=== PATIENT | male | born 1975 | race Caucasian/White ===

== ENCOUNTER → 2017-04-28 | Outpatient (CLI) | payer BC ==
--- NOTE | 2017-04-28 14:34 | VAS ---
HISTORY: Right lower extremity edema Study: Right lower extremity venous Doppler Comparison: None TECHNIQUE: Multiple walter scale and color flow Doppler images of the deep venous system were obtaine d of the right lower extremity. FINDINGS: The deep venous system of the right lower extremity was evaluated from the level of the common femor al vein through the popliteal vein. Normal color flow and augmentation can be observed. In additio n, normal compression is seen throughout the deep venous system. IMPRESSION: 1. Negative for DVT. Reported By:
== END ==
LOC: RAD 14:05
PROVIDERS: ATTEND Internal Medicine
DX: R60.0 Localized edema (principal); M79.661 Pain in right lower leg
CPT/HCPCS: 93971

== ENCOUNTER → 2017-05-19 | Outpatient (CLI) | payer BC ==
--- NOTE | 2017-05-19 16:52 | MRI ---
Indication: Septic arthritis and right foot pain. Exam: MRI right foot without contrast. Technique: Routine multiplanar multi sequence imaging was performed through the right foot without c ontrast . Findings: The ankle mortise is intact . There is a small effusion in the tibiotalar joint. The talus and calcaneus are unremarkable . The tarsal and metatarsal bones are intact and normal signal inten sity throughout . No fracture or dislocation is seen . There is abnormal signal seen around the 1st, 2nd, and 3rd digits distally which is only seen on the axial data sets which is probably related to inadequate fat suppression and susceptibility artifact in the area . There is no obvious abnormal s ignal seen in these digits on the sagittal data sets set. There are small effusions along the MTP sanjuana ints which is most prominent along the 1st toe with no erosions seen. The surrounding tendons and li gaments are intact. The surrounding soft tissues are as unremarkable. Impression: Slightly limited evaluation of the distal 1st , 2nd , and 3rd toes which is probably due to inadequa te fat suppression and possible susceptibility artifact in the area on several of the sequences with no abnormal signal on the other sequences which is suggestive of artifact. If there is clinical con cern for these toes distally , suggest correlating with a 3 phase bone scan. Small effusions in the MTP joints which is most prominent along the 1st toe with no erosion seen and no obvious acute fracture or dislocation. Tiny effusion in the tibiotalar joint . The tendons and ligaments are intact and in good position . Reported By:
== END | disposition home or self-care (01) | DRG 550 ==
LOC: RAD 15:35
PROVIDERS: ATTEND Specialist
DX: M00.9 Pyogenic arthritis, unspecified (principal); M25.474 Effusion, right foot
CPT/HCPCS: 73718

== ENCOUNTER 2021-04-30 08:52 | Inpatient (IN) ==
[2021-04-30 09:04] VITALS: BMI 26.6
[2021-04-30] MEDS ORDERED: TYLENOL 325 MG TAB PO ONE ×2 (09:04→09:06)
[2021-04-30] MEDS ORDERED: NS 100 ML IV 100 ML ONE ×2 (09:04→11:38)
[2021-04-30] MEDS ORDERED: BENADRYL INJ 50 MG VIAL ONE (09:04)
[2021-04-30] MEDS ORDERED: SOLU-Medrol 125 MG VIAL ONE (09:04)
[2021-04-30] MEDS ORDERED: BENADRYL INJ 50 MG VIAL IV ONE (09:06)
[2021-04-30] MEDS ORDERED: SOLU-Medrol 125 MG VIAL IVP ONE (09:06)
[2021-04-30] MEDS ORDERED: REMDESIVIR 100 MG in NS 250 ML IV 250 ML IV ONE (09:07)
[2021-04-30 09:51] LABS: BASOPHILS % (AUTO) 0.4 % (0.2-1.0); HEMATOCRIT 41.6 % (42.0-54.0); HEMOGLOBIN 14.2 g/dL (13.5-18.0); LYMPHOCYTES # (AUTO) 0.7 X10^3/uL (1.3-2.9); LYMPHOCYTES % (AUTO) 13.8 % (21.0-51.0); MEAN CORPUSCULAR HEMOGLOBIN 30.4 pg (27.0-34.0); MEAN CORPUSCULAR HGB CONC 34.2 g/dL (33.0-35.0); MEAN CORPUSCULAR VOLUME 88.8 fL (80.0-100.0); MONOCYTES # (AUTO) 0.5 x10^3/uL (0.3-0.8); MONOCYTES % (AUTO) 8.6 % (0.0-13.0); NEUTROPHILS # (AUTO) 4.2 x10^3/uL (2.2-4.8); NEUTROPHILS % (AUTO) 77.2 % (42.0-75.0); PLATELET COUNT 146 X10^3/uL (150.0-450.0); RED BLOOD COUNT 4.69 X10^6/uL (4.7-6.0); RED CELL DISTRIBUTION WIDTH 13.1 % (11.6-16.5); WHITE BLOOD COUNT 5.4 X10^3/uL (3.6-10.0)
--- NOTE | 2021-04-30 09:58 | RAD ---
HISTORYPre COVID-19 infusionSTUDYChest PA and [id number] is within normal limits in size. The harman are normal. Increasing bilateral ground-glass infiltrates are identified now involving the periphery of the right upper lobe and a significant portion of the right lung base and to a much lesser extent peripherally in the left upper lobe. No pleural effusions are identified. Bony thorax is unremarkable.IMPRESSIONIncreasing bilateral ground-glass infiltrates compatible with but not diagnostic of COVID 19 lung involvement.Electronically signed by: LINDA LYNN (Apr 30, 2021 09:56:02)
[2021-04-30 10:05] LABS: ALANINE AMINOTRANSFERASE 65 Units/L (12-78); ALKALINE PHOSPHATASE 92 Units/L (46-116); ASPARTATE AMINO TRANSFERASE 70 Units/L (15-37); BLOOD UREA NITROGEN 12 mg/dL (7-18); CALCIUM 8.6 mg/dL (8.5-10.1); CARBON DIOXIDE 31.6 mmol/L (21-32); CHLORIDE 102 mmol/L (98-107); COR CA(FOR HYPOALB) 9.4 mg/dL (8.5-10.1); CREATININE 1.09 mg/dL (0.70-1.30); SODIUM 138 mmol/L (136-145); TOTAL PROTEIN 7.3 g/dL (6.4-8.2); eGFR NON BLACK RACES > 60 (>60)
[2021-04-30 11:06] LABS: ABG ALLEN TEST POS; ABG BASE EXCESS 3.7 mmol/L (-2.0-2.0); ABG HCO3 28.5 mmol/L (22-26)
[2021-04-30] MEDS ORDERED: HumuLIN R SUBCUT PRN (11:27)
[2021-04-30] MEDS ORDERED: PHARMACY CONSULT - IVERMECTIN XX SCH (12:00)
[2021-04-30] MEDS: NS 1/2 1000 ML IV 1,000 ML IV SCH (12:15)
--- NOTE | 2021-04-30 12:25 | CT ---
CTA CHESTCLINICAL INDICATION: COVID PNEUMONIA, ELEVATED D-DIMERPROCEDURE: Non gated axial images of the chest were obtained with intravenous contrast according to pulmonary embolism protocol. MIPS were reconstructed Dose reduction techniques including Automated Exposure Control (AEC) and adjustment of mA and kV were utlized.COMPARISON:NoneFINDINGS:No evidence of a pulmonary embolism to the level of the segmental pulmonary arteries.The heart is normal in size . No pericardial effusion . Patchy bilateral ground-glass opacities are present. No suspicious mediastinal or axillary lymph nodes . No focal consolidations, pleural effusions or pneumothorax .Airways are patent . No suspicious pulmonary nodules or masses .Limited images of the upper abdomen are unremarkable.No aggressive osseous lesions.IMPRESSION:1. No evidence of pulmonary embolism.2. Patchy bilateral ground-glass opacities consistent with acute, atypical infection including viral etiologies.Electronically signed by: RAULITO KEYS (Apr 30, 2021 12:23:30)
[2021-04-30] MEDS ORDERED: IVERMECTIN PO ONE (13:00)
[2021-04-30 13:05] LABS: CKMB % 0.7 % (<4); CREATINE KINASE 143 Units/L (39-308); CREATINE KINASE MB < 1.0 ng/mL (0-4.0); TROPONIN I < 0.02 ng/mL (0-1.5)
[2021-04-30] MEDS: MUCOMYST 20% 200 MG/ML NEB SCH ×4 (14:05→20:33)
[2021-04-30] MEDS: ACCUNEB 1.25 MG NEBULE NEB SCH ×4 (14:05→20:32)
[2021-04-30] MEDS: ROBITUSSIN DM PO SCH ×3 (14:48→20:51)
[2021-04-30] MEDS: LOVENOX INJ 30 MG SYR SC SCH ×2 (14:48→20:51)
[2021-04-30] MEDS: SOLU-Medrol 125 MG VIAL IVP SCH ×2 (14:48→21:04)
[2021-04-30] MEDS: TESSALON PERLES PO SCH ×2 (14:48→21:04)
[2021-04-30] MEDS: ASCORBIC ACID INJ MULTI-DOSE VIAL 1,500 MG in NS 50 ML IV 50 ML IV SCH ×2 (14:59→20:50)
[2021-04-30] MEDS ORDERED: PULMICORT NEB TX 0.5 MG NEB ONE (19:50)
[2021-04-30] MEDS: PULMICORT NEB TX 0.5 MG NEB SCH (20:33)
[2021-04-30] MEDS: SNACK - Diabetic Appropriate PO SCH (20:49)
[2021-04-30] MEDS: LIPITOR TAB 80 MG PO SCH (20:50)
[2021-04-30] MEDS: MELATONIN PO SCH (20:51)
[2021-04-30] MEDS: SINGULAIR TAB 10 MG PO SCH (20:52)
[2021-04-30] MEDS: TUSSIONEX PENNKINETIC SUSP PO PRN (22:43)
[2021-05-01] MEDS: ASCORBIC ACID INJ MULTI-DOSE VIAL 1,500 MG in NS 50 ML IV 50 ML IV SCH ×4 (02:41→20:22)
[2021-05-01 04:38] LABS: ABG BASE EXCESS 3.3 mmol/L (-2.0-2.0); ABG HCO3 29.1 mmol/L (22-26)
[2021-05-01 04:39] LABS: ABG ALLEN TEST POS
[2021-05-01] MEDS: NS 1/2 1000 ML IV 1,000 ML IV SCH ×4 (04:40→21:56)
[2021-05-01 05:01] LABS: BASOPHILS % (AUTO) 0.2 % (0.2-1.0); HEMATOCRIT 37.8 % (42.0-54.0); HEMOGLOBIN 12.9 g/dL (13.5-18.0); LYMPHOCYTES # (AUTO) 0.6 X10^3/uL (1.3-2.9); LYMPHOCYTES % (AUTO) 11.6 % (21.0-51.0); MEAN CORPUSCULAR HEMOGLOBIN 30.1 pg (27.0-34.0); MEAN CORPUSCULAR HGB CONC 34.1 g/dL (33.0-35.0); MEAN CORPUSCULAR VOLUME 88.3 fL (80.0-100.0); MEAN PLATELET VOLUME 8.3 fL (7.4-11.0); MONOCYTES # (AUTO) 0.5 x10^3/uL (0.3-0.8); MONOCYTES % (AUTO) 10.6 % (0.0-13.0); NEUTROPHILS # (AUTO) 3.9 x10^3/uL (2.2-4.8); NEUTROPHILS % (AUTO) 77.6 % (42.0-75.0); PLATELET COUNT 170 X10^3/uL (150.0-450.0); RED BLOOD COUNT 4.29 X10^6/uL (4.7-6.0); RED CELL DISTRIBUTION WIDTH 12.9 % (11.6-16.5); WHITE BLOOD COUNT 5.1 X10^3/uL (3.6-10.0)
[2021-05-01] MEDS ORDERED: NS 1/2 1000 ML IV 1,000 ML IV ONE ×2 (05:05→20:19)
[2021-05-01 05:06] LABS: BLOOD UREA NITROGEN 10 mg/dL (7-18); CALCIUM 8.2 mg/dL (8.5-10.1); CHLORIDE 102 mmol/L (98-107); COR NA(FOR HYPERGLY) 140 mmol/L (136-145); CREATININE 0.86 mg/dL (0.70-1.30); SODIUM 139 mmol/L (136-145); eGFR NON BLACK RACES > 60 (>60)
[2021-05-01] MEDS: SOLU-Medrol 125 MG VIAL IVP SCH ×3 (05:08→21:56)
[2021-05-01] MEDS: TESSALON PERLES PO SCH ×3 (05:08→21:56)
--- NOTE | 2021-05-01 06:33 | RAD ---
HISTORYShortness of breathSTUDYChest AP [id number]/2021 plain film and CTA chestFINDINGSThe heart is mildly enlarged. No congestive heart failure is noted. Bilateral interstitial and peripheral ground-glass infiltrates are again identified unchanged on the right and slightly worse on the left when compared with the prior examination. No pleural effusions are identified. Bony thorax is unremarkable.IMPRESSIONMinimal cardiomegaly without congestive heart failureBilateral interstitial and peripheral ground-glass infiltrates unchanged on the right and slightly increased on the left when compared with the prior examinationElectronically signed by: LINDA LYNN (May 01, 2021 06:31:47)
[2021-05-01] MEDS: ACCUNEB 1.25 MG NEBULE NEB SCH ×4 (08:43→20:22)
[2021-05-01] MEDS: MUCOMYST 20% 200 MG/ML NEB SCH ×4 (08:43→20:22)
[2021-05-01] MEDS: PULMICORT NEB TX 0.5 MG NEB SCH ×2 (08:43→20:22)
[2021-05-01] MEDS: ROBITUSSIN DM PO SCH ×4 (09:00→20:23)
[2021-05-01] MEDS: LEVAQUIN PREMIX IV 500 MG 500 MG/100 ML BAG IV SCH (09:00)
[2021-05-01] MEDS: ZyrTEC TAB 10 MG PO SCH (09:00)
[2021-05-01] MEDS: PROTONIX INJ 40 MG VIAL IVP SCH (09:00)
[2021-05-01] MEDS: PEPCID 20 MG IV PREMIX* 20 MG/50 ML BAG IV SCH (09:00)
[2021-05-01] MEDS: ZINC SULFATE PO SCH (09:00)
[2021-05-01] MEDS ORDERED: REMDESIVIR 100 MG in NS 250 ML IV 250 ML IV SCH (09:00)
[2021-05-01] MEDS: DIFLUCAN PO SCH (09:00)
[2021-05-01] MEDS: VITAMIN D3 125 mcg (5,000 UNITS) PO SCH (09:00)
--- NOTE | 2021-05-01 10:49 | DR.H&P ---
H&P - History & Physical for Day of: H&P Date: 04/30/21 - Chief Complaint Chief Complaint: SHORTNESS OF BREATH, COUGH, BODY ACHES, AND WEAKNESS - History of Present Illness History of Present Illness: IS A 45 YEAR OLD PATIENT OF [employer]. HAS A PMH OF SEIZURES DUE TO ENCEPHALITIS. HE WAS DIAGNOSED WITH COVID-19 ON 04/25/2021. HE HAD BEEN RECEVING OUTPATIENT REMDESIVIR INFUSIONS SINCE 04/29. HE PRESENTED FOR OUTPATIENT INFUSION TODAY WITH COMPLAINTS OF PERSISTENT SHORTNESS OF BREATH, COUGH, BODY ACHES, AND WEAKNESS. HIS OXYGEN SATURATIONS HAVE DROPPED INTO THE 80s ON ROOM AIR. HE HAS BEEN USING BUDESONIDE NEB TREATMENTS AND TAKING ELIQUIS 5MG PO BID. HE HAS ALSO TAKEN IVERMECTIN X 2 DOSES. HIS LABS WERE OBTAINED ON ARRIVAL. ABNORMAL LAB VALUES INCLUDE THE FOLLOWING: RBC 4.69, HCT 41.6, PLT COUNT 146, D-DIMER 1.76, GLUCOSE 106, FERRITIN 2505, AST 70, CRP 219.60, ALBUMIN 3.0. ABG WAS OBTAINED AND REVEALED: PH 7.430, PC02 43, P02 54, HC03 28.5, 02 SAT 89, BASE EXCESS 3.7, A-A GRADIENT 42, FI02 21.0. BLOOD CULTURES WERE SET UP. A CHEST XRAY WAS OBTAINED AND REVEALED: Increasing bilateral ground-glass infiltrates compatible with but not diagnostic of COVID 19 lung involvement. CHEST CTA OBTAINED AND REVEALED: 1. No evidence of pulmonary embolism. 2. Patchy bilateral ground-glass opacities consistent with acute, atypical infection including viral etiologies. EKG REVEALED: SINUS RHYTHM WITH HR 79. PATIENT WAS ADMITTED TO THE HOSPITAL FOR FURTHER EVALUATION AND TREATMENT OF PNEUMONIA DUE TO COVID-19, FAILED OUTPATIENT TREATMENT, HYPOXIA. HE WAS STARTED ON SUPPLEMENTAL OXYGEN, 1/2NS AT 75 ML/HR, REMDESIVIR 100MG IV DAILY, LEVAQUIN 500MG IV DAILY, ALBUTEROL NEBS QID, PULMICORT NEBS BID, MUCOMYST IN NEBS QID, ASCORBIC ACID 1500MG IV Q6H, LIPITOR 80MG PO HS, TESSALON PERLES 200MG PO TID, ZYRTEC 10MG PO DAILY, TUSSIONEX 5ML PO Q12H PRN, LOVENOX 30MG SC BID, PEPCID 20MG IV DAILY, DIFLUCAN 100MG PO DAILY, ROBITUSSIN DM 10ML PO QID, HUMULIN R SLIDING SCALE, OTBS ACHS, MELATONIN 10MG PO HS, SOLU-MEDROL 80MG IV Q8 H, SINGULAIR 10MG PO HS, PROTONIX 40MG IV DAILY, AND ZINC SULFATE 220MG PO DAILY. OTHERWISE, WE WILL FOLLOW UP WITH AM LABS AND CONTINUE TO MONITOR. TIME SPENT ON CLINICAL ASSESSMENT, REVIEWING LABS AND IMAGING, DECISION MAKING, AND DOCUMENTATION GREATER THAN 75 MINUTES. - Past Medical History Past Medical History: Seizures Additional Medical History: ENCEPHALITIS - Family History Family Medical History: Hypertension - Social History Does patient currently use any type of tobacco product: No Have you used tobacco products in the last 12 months: No Type of Tobacco Use: None Does any household member use tobacco: No Alcohol Use: None Drug Use: None - Medications Home Medications: No Known Drug Allergies Allergy (Verified 04/28/21 15:59) CONTINUE taking the following medications carisoprodol [Soma] 350 mg PO TID PRN 04/30/21 [History] levetiracetam [Keppra] 1,000 mg PO BID 04/30/21 [History] phenytoin [Dilantin Infatabs] 50 mg PO QHS 04/30/21 [History] phenytoin sodium extended 300 mg PO QAM 04/30/21 [History] - Review of Systems Constitutional: See HPI, Fever, Weakness Eyes: No Symptoms Reported ENT: No Symptoms Reported Respiratory: See HPI, Cough, Shortness of Breath Cardiovascular: No Symptoms Reported Gastrointestinal: No Symptoms Reported Genitourinary: No Symptoms Reported Musculoskeletal: No Symptoms Reported Skin: No Symptoms Reported Neurological: Weakness - Physical Exam Vital Signs: Temperature 96.9 F Pulse Rate [Right Brachial] 86 Pulse Rate 65 Respiratory Rate 18 Blood Pressure [Right Arm] 115/67 Blood Pressure 111/70 O2 Sat by Pulse Oximetry 96 Oriented: Normal Eyes: Normal Ear: Normal Nose: Normal Throat: Normal Respiratory: Diminished Throughout, Rales Throughout Cardiovascular: Normal : Normal Auscultation: Bowel Sounds: Normal Palpation: Normal Tenderness: Normal Skin: Normal Musculoskeletal: Normal Psychiatric: Normal Mood Description: Calm Affect: Normal Speech Pattern: Clear - Assessment/Plan (1) Pneumonia due to 2019 novel coronavirus Status: Acute Plan: ADMIT, SUPPLEMENTAL OXYGEN, 1/2NS AT 75 ML/HR, REMDESIVIR 100MG IV DAILY, LEVAQUIN 500MG IV DAILY, ALBUTEROL NEBS QID, PULMICORT NEBS BID, MUCOMYST IN NEBS QID, ASCORBIC ACID 1500MG IV Q6H, LIPITOR 80MG PO HS, TESSALON PERLES 200MG PO TID, ZYRTEC 10MG PO DAILY, TUSSIONEX 5ML PO Q12H PRN, LOVENOX 30MG SC BID, PEPCID 20MG IV DAILY, DIFLUCAN 100MG PO DAILY, ROBITUSSIN DM 10ML PO QID, HUMULIN R SLIDING SCALE, OTBS ACHS, MELATONIN 10MG PO HS, SOLU-MEDROL 80MG IV Q8H, SINGULAIR 10MG PO HS, PROTONIX 40MG IV DAILY, AND ZINC SULFATE 220MG PO DAILY. (2) Hypoxia Status: Acute - Allergies Allergies/Adverse Reactions: Allergies Allergy/AdvReac Type Severity Reaction Status Date / Time No Known Drug Allergies Allergy Verified 04/28/21 15:59
--- NOTE | 2021-05-01 11:03 | PCM.PROG ---
Progress Note - Progress Note for Day of Date of Exam: 05/01/21 - Subjective Subjective: WAS ADMITTED FOR TREATMENT OF COVID PNEUMONIA AND HYPOXIA. TODAY, HE IS ALERT AND ORIENTED, LYING IN BED ON MORNING ROUNDS. HE CONTINUES WITH COMPLAINTS OF PERSISTENT SHORTNESS OF BREATH, COUGH, BODY ACHES, AND WEAKNESS. HIS OXYGEN SATURATIONS HAVE DROPPED INTO THE 80S WHILE ON 2 LITERS OF OXYGEN VIA NASAL CANNULA THROUGHOUT THE NIGHT. HE DOES RECOVER TO THE 90s WHILE RESTING. ON EXAMINATION, HEART IS REGULAR IN RATE AND RHYTHM. BILATERAL LUNGS ARE NOTED WITH RALES, DIMINISHED THROUGHOUT. ABNORMAL LAB VALUES INCLUDE THE FOLLOWING: RBC 4.29, HGB 12.9, HCT 37.8, D-DIMER 0.93, GLUCOSE 137, CALCIUM 8.2, FERRITIN 2461. ABG WAS OBTAINED AND REVEALED: PH 7.390, PC02 48, P02 47, HC03 29.1, 02 SAT 82, BASE EXCESS 3.3, A-A GRADIENT 178, FI02 40.0. BLOOD CULTURES WERE SET UP. A CHEST XRAY WAS OBTAINED AND REVEALED: Minimal cardiomegaly without congestive heart failure. Bilateral interstitial and peripheral ground-glass infiltrates unchanged on the right and slightly increased on the left when compared with the prior examination. HE IS CURRENTLY RECEIVING: SUPPLEMENTAL OXYGEN, 1/2NS AT 75 ML/HR, REMDESIVIR 100MG IV DAILY, LEVAQUIN 500MG IV DAILY, ALBUTEROL NEBS QID, PULMICORT NEBS BID, MUCOMYST IN NEBS QID, ASCORBIC ACID 1500MG IV Q6H, LIPITOR 80MG PO HS, TESSALON PERLES 200MG PO TID, ZYRTEC 10MG PO DAILY, TUSSIONEX 5ML PO Q12H PRN, LOVENOX 30MG SC BID, PEPCID 20MG IV DAILY, DIFLUCAN 100MG PO DAILY, ROBITUSSIN DM 10ML PO QID, HUMULIN R SLIDING SCALE, OTBS ACHS, MELATONIN 10MG PO HS, SOLU-MEDROL 80MG IV Q8H, SINGULAIR 10MG PO HS, PROTONIX 40MG IV DAILY, AND ZINC SULFATE 220MG PO DAILY. WE WILL CONTINUE WITH CURRENT PLAN OF CARE TODAY. OTHERWISE, WE WILL FOLLOW UP WITH AM LABS, CHEST XRAY, ABG, AND CONTINUE TO MONITOR. TIME SPENT ON CLINICAL ASSESSMENT, REVIEWING LABS AND IMAGING, DECISION MAKING, AND DOCUMENTATION GREATER THAN 45 MINUTES. - Past Medical Family Social History Past Med/Fam/Surg Hx: No changes since H&P Allergies: Allergies No Known Drug Allergies Allergy (Verified 04/28/21 15:59) - Review of Systems ROS: No change since H&P - Vital Signs and I&O's Vital Signs: Temperature 96.9 F Pulse Rate [Right Brachial] 86 Pulse Rate 75 Respiratory Rate 21 Blood Pressure [Right Arm] 115/67 Blood Pressure 111/70 O2 Sat by Pulse Oximetry 95 Intake and Output: Intake & Output 04/28/21 04/29/21 04/30/21 05/01/21 11:59 11:59 11:59 11:59 Intake Total 3787 / 3787 Output Total 1300 / 1300 Balance 2487 / 2487 - Physical Exam Oriented: Normal Eyes: Normal Ear: Normal Nose: Normal Throat: Normal Respiratory: Diminished, Rales Cardiovascular: Normal : Normal Auscultation: Bowel Sounds: Normal Palpation: Normal Tenderness: Normal Skin: Normal Musculoskeletal: Normal Psychiatric: Normal Mood Description: Calm Affect: Normal Speech Pattern: Clear - Laboratory and Diagnostics Result Diagrams: 05/01/21 04:00 05/01/21 04:00 Labs: 04/30/21 12:15 Blood Blood Culture - Preliminary 04/30/21 12:09 Blood Blood Culture - Preliminary Laboratory WBC 5.1 X10^3/uL (3.6-10.0) 05/01/21 04:00 RBC 4.29 X10^6/uL (4.7-6.0) L 05/01/21 04:00 Hgb 12.9 g/dL (13.5-18.0) L 05/01/21 04:00 Hct 37.8 % (42.0-54.0) L 05/01/21 04:00 MCV 88.3 fL (80.0-100.0) 05/01/21 04:00 MCH 30.1 pg (27.0-34.0) 05/01/21 04:00 MCHC 34.1 g/dL (33.0-35.0) 05/01/21 04:00 RDW 12.9 % (11.6-16.5) 05/01/21 04:00 Plt Count 170 X10^3/uL (150.0-450.0) 05/01/21 04:00 MPV 8.3 fL (7.4-11.0) 05/01/21 04:00 Neut % (Auto) 77.6 % (42.0-75.0) H 05/01/21 04:00 Lymph % (Auto) 11.6 % (21.0-51.0) L 05/01/21 04:00 [place] % (Auto) 10.6 % (0.0-13.0) 05/01/21 04:00 Eos % (Auto) 0.0 % (0.9-2.9) L 05/01/21 04:00 Baso % (Auto) 0.2 % (0.2-1.0) 05/01/21 04:00 Neut # (Auto) 3.9 x10^3/uL (2.2-4.8) 05/01/21 04:00 Lymph # (Auto) 0.6 X10^3/uL (1.3-2.9) L 05/01/21 04:00 [place] # (Auto) 0.5 x10^3/uL (0.3-0.8) 05/01/21 04:00 Eos # (Auto) 0.0 x10^3/uL (0.0-0.2) 05/01/21 04:00 Baso # (Auto) 0.0 X10^3/uL (0.0-0.1) 05/01/21 04:00 Absolute Nucleated RBC 0.1 /100WBC 05/01/21 04:00 D-Dimer 0.93 ug/ml (0.0-0.57) H* 05/01/21 04:00 Sample Site Rr 05/01/21 04:20 ABG pH 7.390 (7.35-7.45) 05/01/21 04:20 ABG pCO2 48.0 mmHg (35.0-45.0) H 05/01/21 04:20 ABG pO2 47.0 mmHg (80.0-100.0) L* 05/01/21 04:20 ABG HCO3 29.1 mmol/L (22-26) H 05/01/21 04:20 ABG O2 Saturation 82.0 % (90-100) L* 05/01/21 04:20 ABG Base Excess 3.3 mmol/L (-2.0-2.0) H 05/01/21 04:20 Low Test Pos 05/01/21 04:20 A-a Gradient 178.0 mmHg 05/01/21 04:20 FiO2 40.0 05/01/21 04:20 Blood Gas Comments [place] [facility] sw 05/01/21 04:20 Sodium 139 mmol/L (136-145) 05/01/21 04:00 Corrected Sodium 140 mmol/L (136-145) 05/01/21 04:00 Potassium 4.2 mmol/L (3.5-5.1) 05/01/21 04:00 Chloride 102 mmol/L (98-107) 05/01/21 04:00 Carbon Dioxide 27.0 mmol/L (21-32) 05/01/21 04:00 BUN 10 mg/dL (7-18) 05/01/21 04:00 Creatinine 0.86 mg/dL (0.70-1.30) 05/01/21 04:00 Est GFR (MDRD) Af Amer > 60 (>60) 05/01/21 04:00 Est GFR (MDRD) Non-Af > 60 (>60) 05/01/21 04:00 Glucose 137 mg/dL (65-99) H 05/01/21 04:00 Calcium 8.2 mg/dL (8.5-10.1) L 05/01/21 04:00 Corrected Calcium 9.4 mg/dL (8.5-10.1) 04/30/21 09:30 Ferritin 2461 ng/mL (26-388) H 05/01/21 04:00 Total Bilirubin 0.40 mg/dL (0.2-1.0) 04/30/21 09:30 AST 70 Units/L (15-37) H 04/30/21 09:30 ALT 65 Units/L (12-78) 04/30/21 09:30 Alkaline Phosphatase 92 Units/L (46-116) 04/30/21 09:30 Creatine Kinase 143 Units/L (39-308) 04/30/21 12:09 CK-MB (CK-2) < 1.0 ng/mL (0-4.0) 04/30/21 12:09 CK/CKMB % Calc 0.7 % (<4) 04/30/21 12:09 Troponin I < 0.02 ng/mL (0-1.5) 04/30/21 12:09 C-Reactive Protein 219.60 mg/L (0-3.0) H 04/30/21 09:30 B-Natriuretic Peptide 9.4 pg/mL (0-79) 05/01/21 04:00 Total Protein 7.3 g/dL (6.4-8.2) 04/30/21 09:30 Albumin 3.0 g/dL (3.4-5.0) L 04/30/21 09:30 Globulin 4.3 g/dL (2.5-4.5) 04/30/21 09:30 Albumin/Globulin Ratio 0.7 Ratio (1.1-2.1) L 04/30/21 09:30 - Plan (1) Pneumonia due to 2019 novel coronavirus Status: Acute Plan: SUPPLEMENTAL OXYGEN, 1/2NS AT 75 ML/HR, REMDESIVIR 100MG IV DAILY, LEVAQUIN 500MG IV DAILY, ALBUTEROL NEBS QID, PULMICORT NEBS BID, MUCOMYST IN NEBS QID, ASCORBIC ACID 1500MG IV Q6H, LIPITOR 80MG PO HS, TESSALON PERLES 200MG PO TID, ZYRTEC 10MG PO DAILY, TUSSIONEX 5ML PO Q12H PRN, LOVENOX 30MG SC BID, PEPCID 20MG IV DAILY, DIFLUCAN 100MG PO DAILY, ROBITUSSIN DM 10ML PO QID, HUMULIN R SLIDING SCALE, OTBS ACHS, MELATONIN 10MG PO HS, SOLU-MEDROL 80MG IV Q8H, SINGULAIR 10MG PO HS, PROTONIX 40MG IV DAILY, AND ZINC SULFATE 220MG PO DAILY. (2) Hypoxia Status: Acute
[2021-05-01 11:21] LABS: ALANINE AMINOTRANSFERASE 70 Units/L (12-78); ALBUMIN 2.7 g/dL (3.4-5.0); ALKALINE PHOSPHATASE 87 Units/L (46-116); ASPARTATE AMINO TRANSFERASE 70 Units/L (15-37); COR CA(FOR HYPOALB) 9.2 mg/dL (8.5-10.1); TOTAL PROTEIN 6.5 g/dL (6.4-8.2)
[2021-05-01] MEDS: LOVENOX INJ 30 MG SYR SC SCH ×2 (12:29→20:22)
[2021-05-01] MEDS: SNACK - Diabetic Appropriate PO SCH (20:21)
[2021-05-01] MEDS: LIPITOR TAB 80 MG PO SCH (20:22)
[2021-05-01] MEDS: MELATONIN PO SCH (20:23)
[2021-05-01] MEDS: SINGULAIR TAB 10 MG PO SCH (20:23)
[2021-05-01] MEDS: TUSSIONEX PENNKINETIC SUSP PO PRN (20:40)
[2021-05-02] MEDS: ASCORBIC ACID INJ MULTI-DOSE VIAL 1,500 MG in NS 50 ML IV 50 ML IV SCH ×4 (03:09→20:13)
[2021-05-02] MEDS: NS 1/2 1000 ML IV 1,000 ML IV SCH ×2 (03:10→17:02)
[2021-05-02] MEDS: TESSALON PERLES PO SCH ×3 (05:22→21:01)
[2021-05-02] MEDS: SOLU-Medrol 125 MG VIAL IVP SCH ×3 (05:23→21:01)
[2021-05-02 05:40] LABS: ALANINE AMINOTRANSFERASE 67 Units/L (12-78); ALBUMIN 2.6 g/dL (3.4-5.0); ALKALINE PHOSPHATASE 84 Units/L (46-116); ASPARTATE AMINO TRANSFERASE 53 Units/L (15-37); BLOOD UREA NITROGEN 9 mg/dL (7-18); CALCIUM 8.4 mg/dL (8.5-10.1); CARBON DIOXIDE 30.6 mmol/L (21-32); CHLORIDE 106 mmol/L (98-107); COR CA(FOR HYPOALB) 9.5 mg/dL (8.5-10.1); COR NA(FOR HYPERGLY) 144 mmol/L (136-145); CREATININE 0.82 mg/dL (0.70-1.30); SODIUM 143 mmol/L (136-145); TOTAL PROTEIN 6.4 g/dL (6.4-8.2); eGFR NON BLACK RACES > 60 (>60)
[2021-05-02 05:44] LABS: BASOPHILS % (AUTO) 0.2 % (0.2-1.0); HEMATOCRIT 37.7 % (42.0-54.0); HEMOGLOBIN 12.6 g/dL (13.5-18.0); LYMPHOCYTES # (AUTO) 0.5 X10^3/uL (1.3-2.9); LYMPHOCYTES % (AUTO) 8.1 % (21.0-51.0); MEAN CORPUSCULAR HEMOGLOBIN 29.9 pg (27.0-34.0); MEAN CORPUSCULAR HGB CONC 33.5 g/dL (33.0-35.0); MEAN CORPUSCULAR VOLUME 89.3 fL (80.0-100.0); MEAN PLATELET VOLUME 8.5 fL (7.4-11.0); MONOCYTES # (AUTO) 0.5 x10^3/uL (0.3-0.8); MONOCYTES % (AUTO) 9.6 % (0.0-13.0); NEUTROPHILS # (AUTO) 4.6 x10^3/uL (2.2-4.8); NEUTROPHILS % (AUTO) 82.1 % (42.0-75.0); PLATELET COUNT 215 X10^3/uL (150.0-450.0); RED BLOOD COUNT 4.23 X10^6/uL (4.7-6.0); RED CELL DISTRIBUTION WIDTH 13.1 % (11.6-16.5); WHITE BLOOD COUNT 5.5 X10^3/uL (3.6-10.0)
--- NOTE | 2021-05-02 06:16 | RAD ---
HISTORYSOBSTUDYCHEST, 1 [id number] trachea is midline. The cardiac silhouette is unremarkable. Patchy bilateral parenchymal infiltrates unchanged. No pneumothorax.. The bony thorax is unremarkable.IMPRESSIONStable portable chestElectronically signed by: Rich Shaw (May 02, 2021 06:14:03)
[2021-05-02 07:00] LABS: ABG BASE EXCESS 4.8 mmol/L (-2.0-2.0); ABG HCO3 30.4 mmol/L (22-26)
[2021-05-02 07:01] LABS: ABG ALLEN TEST POS
[2021-05-02] MEDS ORDERED: SOMA TAB 350 MG PO PRN (08:16)
[2021-05-02] MEDS: PEPCID 20 MG IV PREMIX* 20 MG/50 ML BAG IV SCH (08:30)
[2021-05-02] MEDS: PULMICORT NEB TX 0.5 MG NEB SCH ×2 (09:11→21:08)
[2021-05-02] MEDS: ACCUNEB 1.25 MG NEBULE NEB SCH ×4 (09:11→21:08)
[2021-05-02] MEDS: MUCOMYST 20% 200 MG/ML NEB SCH ×4 (09:11→21:08)
[2021-05-02] MEDS: LEVAQUIN PREMIX IV 500 MG 500 MG/100 ML BAG IV SCH (09:30)
--- NOTE | 2021-05-02 09:40 | PCM.PROG ---
Progress Note - Progress Note for Day of Date of Exam: 05/02/21 - Subjective Subjective: WAS ADMITTED FOR TREATMENT OF COVID PNEUMONIA AND HYPOXIA. TODAY, HE IS ALERT AND ORIENTED, LYING IN BED ON MORNING ROUNDS. HE CONTINUES WITH COMPLAINTS OF PERSISTENT SHORTNESS OF BREATH, COUGH, BODY ACHES, AND WEAKNESS. HIS OXYGEN SATURATIONS HAVE REMAINED ABOVE 90% WHILE ON 5 LITERS OF OXYGEN VIA NASAL CANNULA THROUGHOUT THE NIGHT. ON EXAMINATION, HEART IS REGULAR IN RATE AND RHYTHM. BILATERAL LUNGS ARE NOTED WITH RALES, DIMINISHED THROUGHOUT. HIS VITALS THIS MORNING ARE: 97.9-65-22-94%-140/78. ABNORMAL LAB VALUES INCLUDE THE FOLLOWING: RBC 4.23, HGB 12.6, HCT 37.7, GLUCOSE 143, CALCIUM 8.4, FERRITIN 2549, AST 53, CRP 105.70, ALBUMIN 2.6. ABG WAS OBTAINED AND REVEALED: PH 7.410, PC02 48, HC03 30.4, 02 SAT 96, BASE EXCESS 4.8, A-A GRADIENT 147, FI02 40. BLOOD CULTURES WERE SET UP. A CHEST XRAY WAS OBTAINED AND REVEALED: The trachea is midline. The cardiac silhouette is unremarkable. Patchy bilateral parenchymal infiltrates unchanged. No pneumothorax. The bony thorax is unremarkable. HE IS CURRENTLY RECEIVING: SUPPLEMENTAL OXYGEN, 1/2NS AT 75 ML/HR, REMDESIVIR 100MG IV DAILY, LEVAQUIN 500MG IV DAILY, ALBUTEROL NEBS QID, PULMICORT NEBS BID, MUCOMYST IN NEBS QID, ASCORBIC ACID 1500MG IV Q6H, LIPITOR 80MG PO HS, TESSALON PERLES 200MG PO TID, ZYRTEC 10MG PO DAILY, TUSSIONEX 5ML PO Q12H PRN, LOVENOX 30MG SC BID, PEPCID 20MG IV DAILY, DIFLUCAN 100MG PO DAILY, ROBITUSSIN DM 10ML PO QID, HUMULIN R SLIDING SCALE, OTBS ACHS, MELATONIN 10MG PO HS, SOLU-MEDROL 80MG IV Q8H, SINGULAIR 10MG PO HS, PROTONIX 40MG IV DAILY, AND ZINC SULFATE 220MG PO DAILY. WE WILL CONTINUE WITH CURRENT PLAN OF CARE TODAY. OTHERWISE, WE WILL FOLLOW UP WITH AM LABS, CHEST XRAY, ABG, AND CONTINUE TO MONITOR. TIME SPENT ON CLINICAL ASSESSMENT, REVIEWING LABS AND IMAGING, DECISION MAKING, AND DOCUMENTATION GREATER THAN 45 MINUTES. - Past Medical Family Social History Past Med/Fam/Surg Hx: No changes since H&P Allergies: Allergies No Known Drug Allergies Allergy (Verified 04/28/21 15:59) - Review of Systems ROS: No change since H&P - Vital Signs and I&O's Vital Signs: Temperature 97.9 F Pulse Rate [Right Brachial] 86 Pulse Rate 65 Respiratory Rate 22 Blood Pressure [Right Arm] 115/67 Blood Pressure 140/78 O2 Sat by Pulse Oximetry 94 Intake and Output: Intake & Output 04/29/21 04/30/21 05/01/21 05/02/21 11:59 11:59 11:59 11:59 Intake Total 3787 / 3787 4110 / 4110 Output Total 1300 / 1300 2680 / 2680 Balance 2487 / 2487 1430 / 1430 - Physical Exam Oriented: Normal Eyes: Normal Ear: Normal Nose: Normal Throat: Normal Respiratory: Diminished, Rales Cardiovascular: Normal : Normal Auscultation: Bowel Sounds: Normal Palpation: Normal Tenderness: Normal Skin: Normal Musculoskeletal: Normal Psychiatric: Normal Mood Description: Calm Affect: Normal Speech Pattern: Clear, Appropriate - Laboratory and Diagnostics Result Diagrams: 05/02/21 04:00 05/02/21 04:00 Labs: 04/30/21 12:15 Blood Blood Culture - Preliminary 04/30/21 12:09 Blood Blood Culture - Preliminary Laboratory WBC 5.5 X10^3/uL (3.6-10.0) 05/02/21 04:00 RBC 4.23 X10^6/uL (4.7-6.0) L 05/02/21 04:00 Hgb 12.6 g/dL (13.5-18.0) L 05/02/21 04:00 Hct 37.7 % (42.0-54.0) L 05/02/21 04:00 MCV 89.3 fL (80.0-100.0) 05/02/21 04:00 MCH 29.9 pg (27.0-34.0) 05/02/21 04:00 MCHC 33.5 g/dL (33.0-35.0) 05/02/21 04:00 RDW 13.1 % (11.6-16.5) 05/02/21 04:00 Plt Count 215 X10^3/uL (150.0-450.0) 05/02/21 04:00 MPV 8.5 fL (7.4-11.0) 05/02/21 04:00 Neut % (Auto) 82.1 % (42.0-75.0) H 05/02/21 04:00 Lymph % (Auto) 8.1 % (21.0-51.0) L 05/02/21 04:00 [place] % (Auto) 9.6 % (0.0-13.0) 05/02/21 04:00 Eos % (Auto) 0.0 % (0.9-2.9) L 05/02/21 04:00 Baso % (Auto) 0.2 % (0.2-1.0) 05/02/21 04:00 Neut # (Auto) 4.6 x10^3/uL (2.2-4.8) 05/02/21 04:00 Lymph # (Auto) 0.5 X10^3/uL (1.3-2.9) L 05/02/21 04:00 [place] # (Auto) 0.5 x10^3/uL (0.3-0.8) 05/02/21 04:00 Eos # (Auto) 0.0 x10^3/uL (0.0-0.2) 05/02/21 04:00 Baso # (Auto) 0.0 X10^3/uL (0.0-0.1) 05/02/21 04:00 Absolute Nucleated RBC 0.2 /100WBC 05/02/21 04:00 D-Dimer 0.54 ug/ml (0.0-0.57) 05/02/21 04:00 Sample Site Rra 05/02/21 06:52 ABG pH 7.410 (7.35-7.45) 05/02/21 06:52 ABG pCO2 48.0 mmHg (35.0-45.0) H 05/02/21 06:52 ABG pO2 78.0 mmHg (80.0-100.0) L 05/02/21 06:52 ABG HCO3 30.4 mmol/L (22-26) H* 05/02/21 06:52 ABG O2 Saturation 96.0 % (90-100) 05/02/21 06:52 ABG Base Excess 4.8 mmol/L (-2.0-2.0) H 05/02/21 06:52 Low Test Pos 05/02/21 06:52 A-a Gradient 147.0 mmHg 05/02/21 06:52 FiO2 40.0 05/02/21 06:52 Blood Gas Comments [place] [facility] mts/mtf 05/02/21 06:52 Sodium 143 mmol/L (136-145) 05/02/21 04:00 Corrected Sodium 144 mmol/L (136-145) 05/02/21 04:00 Potassium 4.5 mmol/L (3.5-5.1) 05/02/21 04:00 Chloride 106 mmol/L (98-107) 05/02/21 04:00 Carbon Dioxide 30.6 mmol/L (21-32) 05/02/21 04:00 BUN 9 mg/dL (7-18) 05/02/21 04:00 Creatinine 0.82 mg/dL (0.70-1.30) 05/02/21 04:00 Est GFR (MDRD) Af Amer > 60 (>60) 05/02/21 04:00 Est GFR (MDRD) Non-Af > 60 (>60) 05/02/21 04:00 Glucose 143 mg/dL (65-99) H 05/02/21 04:00 Calcium 8.4 mg/dL (8.5-10.1) L 05/02/21 04:00 Corrected Calcium 9.5 mg/dL (8.5-10.1) 05/02/21 04:00 Ferritin 2549 ng/mL (26-388) H 05/02/21 04:00 Total Bilirubin 0.30 mg/dL (0.2-1.0) 05/02/21 04:00 AST 53 Units/L (15-37) H 05/02/21 04:00 ALT 67 Units/L (12-78) 05/02/21 04:00 Alkaline Phosphatase 84 Units/L (46-116) 05/02/21 04:00 Creatine Kinase 143 Units/L (39-308) 04/30/21 12:09 CK-MB (CK-2) < 1.0 ng/mL (0-4.0) 04/30/21 12:09 CK/CKMB % Calc 0.7 % (<4) 04/30/21 12:09 Troponin I < 0.02 ng/mL (0-1.5) 04/30/21 12:09 C-Reactive Protein 105.70 mg/L (0-3.0) H 05/02/21 04:00 B-Natriuretic Peptide 23.8 pg/mL (0-79) 05/02/21 04:00 Total Protein 6.4 g/dL (6.4-8.2) 05/02/21 04:00 Albumin 2.6 g/dL (3.4-5.0) L 05/02/21 04:00 Globulin 3.8 g/dL (2.5-4.5) 05/02/21 04:00 Albumin/Globulin Ratio 0.7 Ratio (1.1-2.1) L 05/02/21 04:00 - Plan (1) Pneumonia due to 2019 novel coronavirus Status: Acute Plan: SUPPLEMENTAL OXYGEN, 1/2NS AT 75 ML/HR, REMDESIVIR 100MG IV DAILY, LEVAQUIN 500MG IV DAILY, ALBUTEROL NEBS QID, PULMICORT NEBS BID, MUCOMYST IN NEBS QID, ASCORBIC ACID 1500MG IV Q6H, LIPITOR 80MG PO HS, TESSALON PERLES 200MG PO TID, ZYRTEC 10MG PO DAILY, TUSSIONEX 5ML PO Q12H PRN, LOVENOX 30MG SC BID, PEPCID 20MG IV DAILY, DIFLUCAN 100MG PO DAILY, ROBITUSSIN DM 10ML PO QID, HUMULIN R SLIDING SCALE, OTBS ACHS, MELATONIN 10MG PO HS, SOLU-MEDROL 80MG IV Q8H, SINGULAIR 10MG PO HS, PROTONIX 40MG IV DAILY, AND ZINC SULFATE 220MG PO DAILY. (2) Hypoxia Status: Acute
[2021-05-02] MEDS ORDERED: NS 100 ML IV 100 ML ONE (10:31)
[2021-05-02] MEDS: PROTONIX INJ 40 MG VIAL IVP SCH (10:35)
[2021-05-02] MEDS: ROBITUSSIN DM PO SCH ×4 (10:35→20:10)
[2021-05-02] MEDS: ZINC SULFATE PO SCH (10:35)
[2021-05-02] MEDS: LOVENOX INJ 30 MG SYR SC SCH ×2 (10:35→20:10)
[2021-05-02] MEDS: VITAMIN D3 125 mcg (5,000 UNITS) PO SCH (10:35)
[2021-05-02] MEDS: ZyrTEC TAB 10 MG PO SCH (10:35)
[2021-05-02] MEDS: DIFLUCAN PO SCH (10:35)
[2021-05-02] MEDS: DILANTIN INFATAB 50 MG PO SCH ×2 (11:09→20:41)
[2021-05-02] MEDS: KEPPRA TAB 500 MG PO SCH ×2 (11:09→20:42)
[2021-05-02] MEDS: DILANTIN CAP 100 MG EXT REL PO SCH (11:09)
[2021-05-02] MEDS ORDERED: NS 1/2 1000 ML IV 1,000 ML IV ONE (17:56)
[2021-05-02] MEDS: SNACK - Diabetic Appropriate PO SCH (20:09)
[2021-05-02] MEDS: LIPITOR TAB 80 MG PO SCH (20:10)
[2021-05-02] MEDS: SINGULAIR TAB 10 MG PO SCH (20:10)
[2021-05-02] MEDS: MELATONIN PO SCH (20:10)
[2021-05-03] MEDS: ASCORBIC ACID INJ MULTI-DOSE VIAL 1,500 MG in NS 50 ML IV 50 ML IV SCH ×4 (02:06→20:16)
[2021-05-03] MEDS ORDERED: NS 1/2 1000 ML IV 1,000 ML IV ONE (04:33)
[2021-05-03] MEDS: TESSALON PERLES PO SCH ×3 (05:08→21:28)
[2021-05-03] MEDS: SOLU-Medrol 125 MG VIAL IVP SCH ×3 (05:09→21:28)
[2021-05-03] MEDS: NS 1/2 1000 ML IV 1,000 ML IV SCH ×2 (05:09→20:17)
[2021-05-03] MEDS ORDERED: IVERMECTIN ONE (05:11)
[2021-05-03 05:20] LABS: BASOPHILS % (AUTO) 0.1 % (0.2-1.0); HEMATOCRIT 36.2 % (42.0-54.0); HEMOGLOBIN 12.4 g/dL (13.5-18.0); LYMPHOCYTES # (AUTO) 0.6 X10^3/uL (1.3-2.9); LYMPHOCYTES % (AUTO) 7.3 % (21.0-51.0); MEAN CORPUSCULAR HEMOGLOBIN 30.3 pg (27.0-34.0); MEAN CORPUSCULAR HGB CONC 34.3 g/dL (33.0-35.0); MEAN CORPUSCULAR VOLUME 88.4 fL (80.0-100.0); MEAN PLATELET VOLUME 8.5 fL (7.4-11.0); MONOCYTES # (AUTO) 0.8 x10^3/uL (0.3-0.8); MONOCYTES % (AUTO) 9.9 % (0.0-13.0); NEUTROPHILS # (AUTO) 6.4 x10^3/uL (2.2-4.8); NEUTROPHILS % (AUTO) 82.7 % (42.0-75.0); PLATELET COUNT 282 X10^3/uL (150.0-450.0); RED BLOOD COUNT 4.09 X10^6/uL (4.7-6.0); RED CELL DISTRIBUTION WIDTH 13.3 % (11.6-16.5); WHITE BLOOD COUNT 7.7 X10^3/uL (3.6-10.0)
[2021-05-03 05:30] LABS: ALANINE AMINOTRANSFERASE 94 Units/L (12-78); ALBUMIN 2.5 g/dL (3.4-5.0); ALKALINE PHOSPHATASE 85 Units/L (46-116); ASPARTATE AMINO TRANSFERASE 82 Units/L (15-37); BLOOD UREA NITROGEN 10 mg/dL (7-18); CALCIUM 8.2 mg/dL (8.5-10.1); CARBON DIOXIDE 31.7 mmol/L (21-32); CHLORIDE 106 mmol/L (98-107); COR CA(FOR HYPOALB) 9.4 mg/dL (8.5-10.1); COR NA(FOR HYPERGLY) 145 mmol/L (136-145); CREATININE 0.82 mg/dL (0.70-1.30); SODIUM 144 mmol/L (136-145); TOTAL PROTEIN 6.1 g/dL (6.4-8.2); eGFR NON BLACK RACES > 60 (>60)
[2021-05-03] MEDS ORDERED: COLACE CAP 100 MG PO PRN (05:52)
[2021-05-03] MEDS ORDERED: IVERMECTIN PO ONE (06:30)
[2021-05-03] MEDS: ACCUNEB 1.25 MG NEBULE NEB SCH ×4 (08:25→21:03)
[2021-05-03] MEDS: PULMICORT NEB TX 0.5 MG NEB SCH ×2 (08:25→21:03)
[2021-05-03] MEDS: MUCOMYST 20% 200 MG/ML NEB SCH ×4 (08:25→21:03)
[2021-05-03] MEDS: PEPCID 20 MG IV PREMIX* 20 MG/50 ML BAG IV SCH (08:49)
--- NOTE | 2021-05-03 09:28 | RAD ---
HISTORYSOB, COVID-19STUDYCHEST, 1 [id number]/30/2021FINDINGSStable cardiomediastinal silhouette. Stable multifocal pulmonary opacities. No sizable effusion or visible pneumothorax. No acute osseous finding.IMPRESSIONNo significant interval change.Electronically signed by: Jorge Alberto Temple (May 03, 2021 09:26:14)
[2021-05-03] MEDS: DILANTIN CAP 100 MG EXT REL PO SCH (09:33)
[2021-05-03] MEDS: KEPPRA TAB 500 MG PO SCH ×2 (09:33→20:57)
[2021-05-03] MEDS: DIFLUCAN PO SCH (09:33)
[2021-05-03] MEDS: ZINC SULFATE PO SCH (09:34)
[2021-05-03] MEDS: LOVENOX INJ 30 MG SYR SC SCH ×2 (09:34→20:16)
[2021-05-03] MEDS: ZyrTEC TAB 10 MG PO SCH (09:34)
[2021-05-03] MEDS: ROBITUSSIN DM PO SCH ×4 (09:34→20:16)
[2021-05-03] MEDS: VITAMIN D3 125 mcg (5,000 UNITS) PO SCH (09:34)
[2021-05-03] MEDS: PROTONIX INJ 40 MG VIAL IVP SCH (09:51)
--- NOTE | 2021-05-03 11:29 | PCM.PROG ---
Progress Note Progress Note for Day of Date of Exam: 05/03/21 Subjective Subjective: Patient seen at bedside, no events overnight. He is currently on 4L NC, sats above 90%. He is coughing up sputum. He has been ambulating to the bathroom. He states his breathing is better. He has been afebrile. His appetite is still poor but he is eating as tolerated. He is currently being treated for COVID-19 pneumonia. Denies past hx of covid infection, unvaccinated. Labs: WBC 7.7 Hgb 12.4 BUN/Cr: 10/0.82 AST 82 ALT 94 CRP 53.10 D-dimer 0.54 ABG 7.41/48/78/30 96% CXR: patchy bilateral infiltrates, no changes Blood Cx neg Plan: continue ICU protocol for COVI-19 pneumonia, Wean O2 as tolerated to keep sats above 92%. Continue nebs, pulmicort and IS. Continue IV solumedrol, diflucan and levaquin. Patient has completed outpatient Remdesvir infusion. Continue vitamin support. Continue gentle hydration. Continue lovenox BID. Monitor AM labs and imaging. Time spent for clinical assessment, reviewing labs/imaging, physical exam, decision making and documentation greater than 45 mins. Past Medical Family Social History Past Med/Fam/Surg Hx: No changes since H&P Allergies: Allergies No Known Drug Allergies Allergy (Verified 04/28/21 15:59) Review of Systems ROS: No change since H&P Vital Signs and I&O's Vital Signs: Temperature 98.4 F Pulse Rate [Right Brachial] 86 Pulse Rate 58 Respiratory Rate 17 Blood Pressure [Right Arm] 115/67 Blood Pressure 122/76 O2 Sat by Pulse Oximetry 96 Intake and Output: Intake & Output 04/30/21 05/01/21 05/02/21 05/03/21 23:59 23:59 23:59 23:59 Intake Total 2256 / 2256 4706 / 4706 5152 / 5152 708 / 708 Output Total 700 / 700 2805 / 2805 3125 / 3125 400 / 400 Balance 1556 / 1556 1901 / 1901 2026 / 2026 308 / 308 Physical Exam Oriented: Normal Eyes: Normal Ear: Normal Nose: Normal Throat: Normal Respiratory: Generalized and Diminished Cardiovascular: Normal Auscultation: Bowel Sounds: Normal Tenderness: Normal Skin: Normal Musculoskeletal: Normal Psychiatric: Normal Mood Description: Calm Affect: Normal Speech Pattern: Clear and Appropriate Laboratory and Diagnostics Result Diagrams: 05/03/21 04:08 05/03/21 04:08 Labs: 04/30/21 12:15 Blood Blood Culture - Preliminary 04/30/21 12:09 Blood Blood Culture - Preliminary Laboratory WBC 7.7 X10^3/uL (3.6-10.0) 05/03/21 04:08 RBC 4.09 X10^6/uL (4.7-6.0) L 05/03/21 04:08 Hgb 12.4 g/dL (13.5-18.0) L 05/03/21 04:08 Hct 36.2 % (42.0-54.0) L 05/03/21 04:08 MCV 88.4 fL (80.0-100.0) 05/03/21 04:08 MCH 30.3 pg (27.0-34.0) 05/03/21 04:08 MCHC 34.3 g/dL (33.0-35.0) 05/03/21 04:08 RDW 13.3 % (11.6-16.5) 05/03/21 04:08 Plt Count 282 X10^3/uL (150.0-450.0) 05/03/21 04:08 MPV 8.5 fL (7.4-11.0) 05/03/21 04:08 Neut % (Auto) 82.7 % (42.0-75.0) H 05/03/21 04:08 Lymph % (Auto) 7.3 % (21.0-51.0) L 05/03/21 04:08 [place] % (Auto) 9.9 % (0.0-13.0) 05/03/21 04:08 Eos % (Auto) 0.0 % (0.9-2.9) L 05/03/21 04:08 Baso % (Auto) 0.1 % (0.2-1.0) L 05/03/21 04:08 Neut # (Auto) 6.4 x10^3/uL (2.2-4.8) H 05/03/21 04:08 Lymph # (Auto) 0.6 X10^3/uL (1.3-2.9) L 05/03/21 04:08 [place] # (Auto) 0.8 x10^3/uL (0.3-0.8) 05/03/21 04:08 Eos # (Auto) 0.0 x10^3/uL (0.0-0.2) 05/03/21 04:08 Baso # (Auto) 0.0 X10^3/uL (0.0-0.1) 05/03/21 04:08 Absolute Nucleated RBC 0.0 /100WBC 05/03/21 04:08 D-Dimer 0.54 ug/ml (0.0-0.57) 05/02/21 04:00 Sample Site Rra 05/02/21 06:52 ABG pH 7.410 (7.35-7.45) 05/02/21 06:52 ABG pCO2 48.0 mmHg (35.0-45.0) H 05/02/21 06:52 ABG pO2 78.0 mmHg (80.0-100.0) L 05/02/21 06:52 ABG HCO3 30.4 mmol/L (22-26) H* 05/02/21 06:52 ABG O2 Saturation 96.0 % (90-100) 05/02/21 06:52 ABG Base Excess 4.8 mmol/L (-2.0-2.0) H 05/02/21 06:52 Low Test Pos 05/02/21 06:52 A-a Gradient 147.0 mmHg 05/02/21 06:52 FiO2 40.0 05/02/21 06:52 Blood Gas Comments [place] well mts/mtf 05/02/21 06:52 Sodium 144 mmol/L (136-145) 05/03/21 04:08 Corrected Sodium 145 mmol/L (136-145) 05/03/21 04:08 Potassium 4.2 mmol/L (3.5-5.1) 05/03/21 04:08 Chloride 106 mmol/L (98-107) 05/03/21 04:08 Carbon Dioxide 31.7 mmol/L (21-32) 05/03/21 04:08 BUN 10 mg/dL (7-18) 05/03/21 04:08 Creatinine 0.82 mg/dL (0.70-1.30) 05/03/21 04:08 Est GFR (MDRD) Af Amer > 60 (>60) 05/03/21 04:08 Est GFR (MDRD) Non-Af > 60 (>60) 05/03/21 04:08 Glucose 148 mg/dL (65-99) H 05/03/21 04:08 POC Glucose (mg/dL) 175 mg/dL (65-99) H 05/02/21 19:35 Calcium 8.2 mg/dL (8.5-10.1) L 05/03/21 04:08 Corrected Calcium 9.4 mg/dL (8.5-10.1) 05/03/21 04:08 Ferritin 2665 ng/mL (26-388) H 05/03/21 04:08 Total Bilirubin 0.30 mg/dL (0.2-1.0) 05/03/21 04:08 AST 82 Units/L (15-37) H 05/03/21 04:08 ALT 94 Units/L (12-78) H 05/03/21 04:08 Alkaline Phosphatase 85 Units/L (46-116) 05/03/21 04:08 Creatine Kinase 143 Units/L (39-308) 04/30/21 12:09 CK-MB (CK-2) < 1.0 ng/mL (0-4.0) 04/30/21 12:09 CK/CKMB % Calc 0.7 % (<4) 04/30/21 12:09 Troponin I < 0.02 ng/mL (0-1.5) 04/30/21 12:09 C-Reactive Protein 53.10 mg/L (0-3.0) H 05/03/21 04:08 B-Natriuretic Peptide 39.4 pg/mL (0-79) 05/03/21 04:08 Total Protein 6.1 g/dL (6.4-8.2) L 05/03/21 04:08 Albumin 2.5 g/dL (3.4-5.0) L 05/03/21 04:08 Globulin 3.6 g/dL (2.5-4.5) 05/03/21 04:08 Albumin/Globulin Ratio 0.7 Ratio (1.1-2.1) L 07/31/21 04:08 Plan (1) Acute respiratory failure due to COVID-19: Status: Acute (2) Pneumonia due to 2019 novel coronavirus: Status: Acute (3) Hypoxia: Status: Acute (4) Seizures: Status: Acute
[2021-05-03] MEDS: LEVAQUIN PREMIX IV 500 MG 500 MG/100 ML BAG IV SCH (11:30)
[2021-05-03] MEDS: SNACK - Diabetic Appropriate PO SCH (20:15)
[2021-05-03] MEDS: LIPITOR TAB 80 MG PO SCH (20:16)
[2021-05-03] MEDS: MELATONIN PO SCH (20:16)
[2021-05-03] MEDS: SINGULAIR TAB 10 MG PO SCH (20:17)
[2021-05-03] MEDS: DILANTIN INFATAB 50 MG PO SCH (20:57)
[2021-05-04] MEDS: ASCORBIC ACID INJ MULTI-DOSE VIAL 1,500 MG in NS 50 ML IV 50 ML IV SCH ×4 (03:00→20:04)
[2021-05-04] MEDS ORDERED: NS 1/2 1000 ML IV 1,000 ML IV ONE (05:14)
[2021-05-04] MEDS: NS 1/2 1000 ML IV 1,000 ML IV SCH (05:20)
[2021-05-04] MEDS: TESSALON PERLES PO SCH ×3 (05:20→21:10)
[2021-05-04] MEDS: SOLU-Medrol 125 MG VIAL IVP SCH ×3 (05:20→21:10)
[2021-05-04 05:26] LABS: BASOPHILS # (AUTO) 0.1 X10^3/uL (0.0-0.1); BASOPHILS % (AUTO) 1.3 % (0.2-1.0); EOSINOPHILS % (AUTO) 0.1 % (0.9-2.9); HEMATOCRIT 40.2 % (42.0-54.0); HEMOGLOBIN 13.6 g/dL (13.5-18.0); LYMPHOCYTES # (AUTO) 0.7 X10^3/uL (1.3-2.9); LYMPHOCYTES % (AUTO) 6.6 % (21.0-51.0); MEAN CORPUSCULAR HEMOGLOBIN 29.8 pg (27.0-34.0); MEAN CORPUSCULAR HGB CONC 33.8 g/dL (33.0-35.0); MEAN CORPUSCULAR VOLUME 88.1 fL (80.0-100.0); MEAN PLATELET VOLUME 8.6 fL (7.4-11.0); MONOCYTES # (AUTO) 0.9 x10^3/uL (0.3-0.8); MONOCYTES % (AUTO) 8.5 % (0.0-13.0); NEUTROPHILS # (AUTO) 8.5 x10^3/uL (2.2-4.8); NEUTROPHILS % (AUTO) 83.5 % (42.0-75.0); PLATELET COUNT 299 X10^3/uL (150.0-450.0); RED BLOOD COUNT 4.57 X10^6/uL (4.7-6.0); RED CELL DISTRIBUTION WIDTH 13.4 % (11.6-16.5); WHITE BLOOD COUNT 10.2 X10^3/uL (3.6-10.0)
[2021-05-04 05:36] LABS: ALANINE AMINOTRANSFERASE 147 Units/L (12-78); ALBUMIN 2.6 g/dL (3.4-5.0); ALKALINE PHOSPHATASE 91 Units/L (46-116); ASPARTATE AMINO TRANSFERASE 107 Units/L (15-37); BLOOD UREA NITROGEN 8 mg/dL (7-18); CALCIUM 8.4 mg/dL (8.5-10.1); CARBON DIOXIDE 32.6 mmol/L (21-32); CHLORIDE 107 mmol/L (98-107); COR CA(FOR HYPOALB) 9.5 mg/dL (8.5-10.1); COR NA(FOR HYPERGLY) 148 mmol/L (136-145); CREATININE 0.83 mg/dL (0.70-1.30); SODIUM 147 mmol/L (136-145); TOTAL PROTEIN 6.2 g/dL (6.4-8.2); eGFR NON BLACK RACES > 60 (>60)
[2021-05-04] MEDS: ZyrTEC TAB 10 MG PO SCH (09:05)
[2021-05-04] MEDS: ROBITUSSIN DM PO SCH ×4 (09:05→20:05)
[2021-05-04] MEDS: DILANTIN CAP 100 MG EXT REL PO SCH (09:05)
[2021-05-04] MEDS: DIFLUCAN PO SCH (09:05)
[2021-05-04] MEDS: KEPPRA TAB 500 MG PO SCH ×2 (09:05→20:45)
[2021-05-04] MEDS: PROTONIX INJ 40 MG VIAL IVP SCH (09:05)
[2021-05-04] MEDS: LOVENOX INJ 30 MG SYR SC SCH ×2 (09:05→20:05)
[2021-05-04] MEDS: VITAMIN D3 125 mcg (5,000 UNITS) PO SCH (09:05)
[2021-05-04] MEDS: MUCOMYST 20% 200 MG/ML NEB SCH ×4 (09:10→20:15)
[2021-05-04] MEDS: PULMICORT NEB TX 0.5 MG NEB SCH ×2 (09:10→20:15)
[2021-05-04] MEDS: ACCUNEB 1.25 MG NEBULE NEB SCH ×5 (09:10→20:15)
[2021-05-04] MEDS: PEPCID 20 MG IV PREMIX* 20 MG/50 ML BAG IV SCH (09:40)
--- NOTE | 2021-05-04 09:53 | RAD ---
HISTORYDyspnea.STUDYCHEST, 1 VIEWCOMPARISONChest radiograph dated May 03, 2021.FINDINGSThe trachea is midline. The cardiac silhouette is stable. There are unchanged, patchy and largely peripheral, airspace and ground-glass opacities seen throughout the lung eagle which would be in keeping with an active COVID-19 infection/pneumonia. The bony thorax is unremarkable.IMPRESSIONUnchanged findings of an active COVID-19 infection/pneumonia with unchanged peripheral airspace and ground-glass disease.Electronically signed by: OSCAR ZHANG III (May 04, 2021 09:51:06)
[2021-05-04] MEDS: LEVAQUIN PREMIX IV 500 MG 500 MG/100 ML BAG IV SCH (10:40)
--- NOTE | 2021-05-04 11:03 | PCM.PROG ---
Progress Note Progress Note for Day of Date of Exam: 05/04/21 Subjective Subjective: Patient seen at bedside, no events overnight. He is currently on 2L NC, sats above 90%. He is coughing up sputum. He has been ambulating to the bathroom. He states his breathing is better. He has been afebrile. His appetite is improving. He is currently being treated for COVID-19 pneumonia. Denies past hx of covid infection, unvaccinated. Labs: WBC 10.2 Hgb 13.6 Na: 148 Cl: 107 BUN/Cr: 8/0.83 AST 107 ALT 147 CRP 29.10 ABG 7.41/48/78/30 96% CXR: Unchanged findings of an active COVID-19 infection/pneumonia with unchanged peripheral airspace and ground-glass disease. Blood Cx neg Plan: continue ICU protocol for COVI-19 pneumonia, Wean O2 as tolerated to keep sats above 92%. Continue nebs, pulmicort and IS. Continue IV solumedrol, diflucan and levaquin. Patient has completed outpatient Remdesvir infusion. Continue vitamin support. Will DC IVF. Continue lovenox BID. Monitor AM labs and imaging. Time spent for clinical assessment, reviewing labs/imaging, physical exam, decision making and documentation greater than 45 mins. Past Medical Family Social History Past Med/Fam/Surg Hx: No changes since H&P Allergies: Allergies No Known Drug Allergies Allergy (Verified 04/28/21 15:59) Review of Systems ROS: No change since H&P Vital Signs and I&O's Vital Signs: Temperature 98.7 F Pulse Rate [Right Brachial] 86 Pulse Rate 73 Respiratory Rate 23 Blood Pressure [Right Arm] 115/67 Blood Pressure 134/87 O2 Sat by Pulse Oximetry 92 Intake and Output: Intake & Output 05/01/21 05/02/21 05/03/21 05/04/21 23:59 23:59 23:59 23:59 Intake Total 4706 / 4706 5152 / 5152 3796 / 3796 618 / 618 Output Total 2805 / 2805 3125 / 3125 1600 / 1600 600 / 600 Balance 1901 / 1901 2026 / 2026 2196 / 219 Physical Exam Oriented: Normal Eyes: Normal Ear: Normal Nose: Normal Throat: Normal Respiratory: Generalized, Diminished and [place] Cardiovascular: Normal : Normal Auscultation: Bowel Sounds: Normal Tenderness: Normal Skin: Normal Musculoskeletal: Normal Psychiatric: Normal Mood Description: Calm Affect: Normal Speech Pattern: Clear and Appropriate Laboratory and Diagnostics Result Diagrams: 05/04/21 04:17 05/04/21 04:17 Labs: 04/30/21 12:15 Blood Blood Culture - Preliminary 04/30/21 12:09 Blood Blood Culture - Preliminary Laboratory WBC 10.2 X10^3/uL (3.6-10.0) H 05/04/21 04:17 RBC 4.57 X10^6/uL (4.7-6.0) L 05/04/21 04:17 Hgb 13.6 g/dL (13.5-18.0) 05/04/21 04:17 Hct 40.2 % (42.0-54.0) L 05/04/21 04:17 MCV 88.1 fL (80.0-100.0) 05/04/21 04:17 MCH 29.8 pg (27.0-34.0) 05/04/21 04:17 MCHC 33.8 g/dL (33.0-35.0) 05/04/21 04:17 RDW 13.4 % (11.6-16.5) 05/04/21 04:17 Plt Count 299 X10^3/uL (150.0-450.0) 05/04/21 04:17 MPV 8.6 fL (7.4-11.0) 05/04/21 04:17 Neut % (Auto) 83.5 % (42.0-75.0) H 05/04/21 04:17 Lymph % (Auto) 6.6 % (21.0-51.0) L 05/04/21 04:17 [place] % (Auto) 8.5 % (0.0-13.0) 05/04/21 04:17 Eos % (Auto) 0.1 % (0.9-2.9) L 05/04/21 04:17 Baso % (Auto) 1.3 % (0.2-1.0) H 05/04/21 04:17 Neut # (Auto) 8.5 x10^3/uL (2.2-4.8) H 05/04/21 04:17 Lymph # (Auto) 0.7 X10^3/uL (1.3-2.9) L 05/04/21 04:17 [place] # (Auto) 0.9 x10^3/uL (0.3-0.8) H 05/04/21 04:17 Eos # (Auto) 0.0 x10^3/uL (0.0-0.2) 05/04/21 04:17 Baso # (Auto) 0.1 X10^3/uL (0.0-0.1) 05/04/21 04:17 Absolute Nucleated RBC 0.1 /100WBC 05/04/21 04:17 D-Dimer 0.71 ug/ml (0.0-0.57) H* 05/03/21 12:46 Sample Site Rra 05/02/21 06:52 ABG pH 7.410 (7.35-7.45) 05/02/21 06:52 ABG pCO2 48.0 mmHg (35.0-45.0) H 05/02/21 06:52 ABG pO2 78.0 mmHg (80.0-100.0) L 05/02/21 06:52 ABG HCO3 30.4 mmol/L (22-26) H* 05/02/21 06:52 ABG O2 Saturation 96.0 % (90-100) 05/02/21 06:52 ABG Base Excess 4.8 mmol/L (-2.0-2.0) H 05/02/21 06:52 Low Test Pos 05/02/21 06:52 A-a Gradient 147.0 mmHg 05/02/21 06:52 FiO2 40.0 05/02/21 06:52 Blood Gas Comments [place] mts/mtf 05/02/21 06:52 Sodium 147 mmol/L (136-145) H 05/04/21 04:17 Corrected Sodium 148 mmol/L (136-145) H 05/04/21 04:17 Potassium 4.5 mmol/L (3.5-5.1) 05/04/21 04:17 Chloride 107 mmol/L (98-107) 05/04/21 04:17 Carbon Dioxide 32.6 mmol/L (21-32) H 05/04/21 04:17 BUN 8 mg/dL (7-18) 05/04/21 04:17 Creatinine 0.83 mg/dL (0.70-1.30) 05/04/21 04:17 Est GFR (MDRD) Af Amer > 60 (>60) 05/04/21 04:17 Est GFR (MDRD) Non-Af > 60 (>60) 05/04/21 04:17 Glucose 139 mg/dL (65-99) H 05/04/21 04:17 POC Glucose (mg/dL) 175 mg/dL (65-99) H 05/02/21 19:35 Calcium 8.4 mg/dL (8.5-10.1) L 05/04/21 04:17 Corrected Calcium 9.5 mg/dL (8.5-10.1) 05/04/21 04:17 Ferritin 2919 ng/mL (26-388) H 05/04/21 04:17 Total Bilirubin 0.20 mg/dL (0.2-1.0) 05/04/21 04:17 AST 107 Units/L (15-37) H 05/04/21 04:17 ALT 147 Units/L (12-78) H 05/04/21 04:17 Alkaline Phosphatase 91 Units/L (46-116) 05/04/21 04:17 Creatine Kinase 143 Units/L (39-308) 04/30/21 12:09 CK-MB (CK-2) < 1.0 ng/mL (0-4.0) 04/30/21 12:09 CK/CKMB % Calc 0.7 % (<4) 04/30/21 12:09 Troponin I < 0.02 ng/mL (0-1.5) 04/30/21 12:09 C-Reactive Protein 29.10 mg/L (0-3.0) H 05/04/21 04:17 B-Natriuretic Peptide 21.1 pg/mL (0-79) 05/04/21 04:17 Total Protein 6.2 g/dL (6.4-8.2) L 05/04/21 04:17 Albumin 2.6 g/dL (3.4-5.0) L 05/04/21 04:17 Globulin 3.6 g/dL (2.5-4.5) 05/04/21 04:17 Albumin/Globulin Ratio 0.7 Ratio (1.1-2.1) L 05/04/21 04:17 Plan (1) Acute respiratory failure due to COVID-19: Status: Acute (2) Pneumonia due to 2019 novel coronavirus: Status: Acute Plan: SUPPLEMENTAL OXYGEN, 1/2NS AT 75 ML/HR, REMDESIVIR 100MG IV DAILY, LEVAQUIN 500MG IV DAILY, ALBUTEROL NEBS QID, PULMICORT NEBS BID, MUCOMYST IN NEBS QID, ASCORBIC ACID 1500MG IV Q6H, LIPITOR 80MG PO HS, TESSALON PERLES 200MG PO TID, ZYRTEC 10MG PO DAILY, TUSSIONEX 5ML PO Q12H PRN, LOVENOX 30MG SC BID, PEPCID 20MG IV DAILY, DIFLUCAN 100MG PO DAILY, ROBITUSSIN DM 10ML PO QID, HUMULIN R SLIDING SCALE, OTBS ACHS, MELATONIN 10MG PO HS, SOLU-MEDROL 80MG IV Q8H, SINGULAIR 10MG PO HS, PROTONIX 40MG IV DAILY, AND ZINC SULFATE 220MG PO DAILY. (3) Hypoxia: Status: Acute (4) Seizures: Status: Acute
[2021-05-04] MEDS: ZINC SULFATE PO SCH (13:30)
[2021-05-04] MEDS: MELATONIN PO SCH (20:04)
[2021-05-04] MEDS: SNACK - Diabetic Appropriate PO SCH (20:04)
[2021-05-04] MEDS: LIPITOR TAB 80 MG PO SCH (20:05)
[2021-05-04] MEDS: SINGULAIR TAB 10 MG PO SCH (20:05)
[2021-05-04] MEDS: DILANTIN INFATAB 50 MG PO SCH (20:45)
[2021-05-05] MEDS: ASCORBIC ACID INJ MULTI-DOSE VIAL 1,500 MG in NS 50 ML IV 50 ML IV SCH ×3 (03:34→15:52)
[2021-05-05] MEDS: SOLU-Medrol 125 MG VIAL IVP SCH ×2 (05:07→13:02)
[2021-05-05] MEDS: TESSALON PERLES PO SCH ×2 (05:07→13:02)
[2021-05-05 05:26] LABS: BASOPHILS % (AUTO) 0.1 % (0.2-1.0); EOSINOPHILS # (AUTO) 0.1 x10^3/uL (0.0-0.2); EOSINOPHILS % (AUTO) 0.4 % (0.9-2.9); HEMATOCRIT 38.8 % (42.0-54.0); HEMOGLOBIN 13.2 g/dL (13.5-18.0); LYMPHOCYTES # (AUTO) 0.7 X10^3/uL (1.3-2.9); LYMPHOCYTES % (AUTO) 6.4 % (21.0-51.0); MEAN CORPUSCULAR HEMOGLOBIN 29.9 pg (27.0-34.0); MEAN CORPUSCULAR VOLUME 88.2 fL (80.0-100.0); MEAN PLATELET VOLUME 8.2 fL (7.4-11.0); MONOCYTES # (AUTO) 0.9 x10^3/uL (0.3-0.8); MONOCYTES % (AUTO) 8.2 % (0.0-13.0); NEUTROPHILS # (AUTO) 9.8 x10^3/uL (2.2-4.8); NEUTROPHILS % (AUTO) 84.9 % (42.0-75.0); PLATELET COUNT 345 X10^3/uL (150.0-450.0); WHITE BLOOD COUNT 11.5 X10^3/uL (3.6-10.0)
[2021-05-05 05:33] LABS: ALANINE AMINOTRANSFERASE 155 Units/L (12-78); ALBUMIN 2.6 g/dL (3.4-5.0); ALKALINE PHOSPHATASE 92 Units/L (46-116); ASPARTATE AMINO TRANSFERASE 95 Units/L (15-37); BLOOD UREA NITROGEN 9 mg/dL (7-18); CALCIUM 8.5 mg/dL (8.5-10.1); CARBON DIOXIDE 31.8 mmol/L (21-32); CHLORIDE 105 mmol/L (98-107); COR CA(FOR HYPOALB) 9.6 mg/dL (8.5-10.1); COR NA(FOR HYPERGLY) 144 mmol/L (136-145); CREATININE 0.75 mg/dL (0.70-1.30); SODIUM 143 mmol/L (136-145); TOTAL PROTEIN 6.3 g/dL (6.4-8.2); eGFR NON BLACK RACES > 60 (>60)
--- NOTE | 2021-05-05 07:14 | RAD ---
HISTORYSOBSTUDYCHEST, 1 [id number]/01/2021.TECHNIQUEAP view of the chestFINDINGSThe cardiac and mediastinal contours appear stable. No significant change in bilateral airspace and interstitial opacities. No definite pleural effusion or pneumothorax.IMPRESSIONNo significant change.Electronically signed by: Joseph Lebron (May 05, 2021 07:12:40)
[2021-05-05] MEDS: DILANTIN CAP 100 MG EXT REL PO SCH (08:42)
[2021-05-05] MEDS: ROBITUSSIN DM PO SCH ×2 (08:43→13:02)
[2021-05-05] MEDS: VITAMIN D3 125 mcg (5,000 UNITS) PO SCH (08:43)
[2021-05-05] MEDS: KEPPRA TAB 500 MG PO SCH (08:43)
[2021-05-05] MEDS: ZINC SULFATE PO SCH (08:44)
[2021-05-05] MEDS: ZyrTEC TAB 10 MG PO SCH (08:44)
[2021-05-05] MEDS: PROTONIX INJ 40 MG VIAL IVP SCH (08:44)
[2021-05-05] MEDS: PEPCID 20 MG IV PREMIX* 20 MG/50 ML BAG IV SCH (08:45)
[2021-05-05] MEDS: DIFLUCAN PO SCH ×2 (08:45→09:55)
[2021-05-05] MEDS: LOVENOX INJ 30 MG SYR SC SCH (08:52)
[2021-05-05] MEDS: MUCOMYST 20% 200 MG/ML NEB SCH (09:25)
[2021-05-05] MEDS: PULMICORT NEB TX 0.5 MG NEB SCH (09:25)
[2021-05-05] MEDS: ACCUNEB 1.25 MG NEBULE NEB SCH (09:25)
[2021-05-05] MEDS: LEVAQUIN PREMIX IV 500 MG 500 MG/100 ML BAG IV SCH (09:56)
[2021-05-05 10:32] LABS: ABG BASE EXCESS 7.2 mmol/L (-2.0-2.0)
[2021-05-05 10:33] LABS: ABG ALLEN TEST POS
[2021-05-05 16:48] VITALS: BP 119/70
== END 2021-05-05 16:35 | disposition home or self-care (01) | DRG 177 ==
LOC: OUTPT REF 08:52 → ICU 11:05
PROVIDERS: ADMIT Internal Medicine; ATTEND Internal Medicine
DX: R56.9 Unspecified convulsions; R06.02 Shortness of breath; R79.89 Other specified abnormal findings of blood chemistry; U07.1 COVID-19; J12.82 Pneumonia due to coronavirus disease 2019; J96.01 Acute respiratory failure with hypoxia; R79.82 Elevated C-reactive protein (CRP)